=== PATIENT | female | born 1950 | race Caucasian/White ===

== ENCOUNTER → 2021-03-29 14:50 | Outpatient (CLI) | payer MEDICARE, MEDICAID, SELFPAY | PROVIDERS: PCP Family Medicine; Visit Provider Nurse Practitioner | DX: Z20.822 Contact with and (suspected) exposure to COVID-19 (principal) | CPT/HCPCS: C9803; U0003; U0005 ==

== ENCOUNTER 2022-02-05 11:00 | Emergency (ER) | payer MEDICARE, MEDICAID, SELFPAY ==
[2022-02-05 11:07] VITALS: BP 135/74; PULSE 90; RESP 18; TEMP 37.3; O2SAT 97; BMI 28.3
[2022-02-05 11:25] VITALS: BP 135/74; PULSE 90; RESP 18; TEMP 37.3; O2SAT 97
--- NOTE | 2022-02-05 11:47 | HMH.EDUTC ---
[facility] [place] Disposition Clinical Impression: Cellulitis Qualifiers: Site of cellulitis: extremity Site of cellulitis of extremity: upper extremity Laterality: right Qualified Code(s): L03.113 - Cellulitis of right upper limb Disposition: Home, Self-Care Condition on Discharge: Good Instructions: Cellulitis, Clindamycin, Mupirocin Additional Instructions: *Start antibiotic(s) immediately and be sure to take as ordered for the FULL length of time although you may be feeling better or start to see improvement in the next 24-48 hours *Monitor closely. Outlined redness so that you can monitor easier. Follow up immediately for new or worsening symptoms including but not limited to redness, swelling, streaking from site fever or chills. *Warm compress with warm water and epson salt 15 minutes 3-4 times day *Never squeeze or pop these on your own. Seek immediate medical attention next time this occurs *Monitor Temp. Tylenol every 4 hours as needed and ibuprofen every 6 hours as needed (as long as your primary care doctor has told you that it is ok to take both. For fever, aches, pain. ER if no less that 101 despite Tylenol and ibuprofen Follow up with your family doctor/primary care physician in the next 48-72 hours if no improvement Straight to ER if any life threatening symptoms Prescriptions: clindamycin HCL [Clindamycin HCl] 300 mg PO Q6H 10 Days #40 cap Transmission Status: Pending to [facility] Mupirocin Calcium [Mupirocin 2% Cream 15gm] 1 applicatio TP TID 10 Days #15 gm Transmission Status: Pending to [facility] Referrals: Isabela Dixon [Primary Care Provider] - As needed Time of Disposition: 11:56 Medical Decision Making - Pedro Inquiry Pt receiving controlled substance: No Pedro was queried for this patient: No Vital Signs: 02/05/22 11:07 02/05/22 11:25 02/05/22 11:57 Temperature 99.2 F 99.2 F 99.2 F Temperature Source Oral Oral Pulse Rate 90 Pulse Rate [Radial] 90 90 Respiratory Rate 18 18 18 Blood Pressure 135/74 Blood Pressure [Left Arm] 135/74 135/74 Blood Pressure Mean [Left Arm] 94 94 Blood Pressure Source [Left Arm] Automatic Cuff Automatic Cuff Blood Pressure Position [Left Arm] Sitting Sitting 02 Sat by Pulse Oximetry 97 97 Oxygen Delivery Method Room Air Room Air Medical Decision Narrative: Discussed transfer back to the ED for further work up and evaluation and patient declined [facility] [place] HPI - General Stated complaint: swelling spot on right arm Time Seen by Provider: 02/05/22 11:48 Mode of Arrival: Ambulatory Source of Information: Patient Limitations: No Limitations Description of Symptoms (Recalled from Triage Doc. by RN): PATIENT C/O SORE TO RIGHT FOREARM, REDNESS AND SWELLING TO AREA HEENT Symptoms (Recalled from RN notes): No Resp Symptoms (Recalled from RN notes): No Skin Symptoms (Recalled from RN notes): Yes MS Symptoms (Recalled from RN notes): No Functional Status (Recalled from RN notes): WNL - History of Present Illness Provider Complaint: Patient states that she has a small pimple like sore on her right forearm States that she has been mashing it and getting stuff out but then it stopped States that she has been putting honey and stuff on it but the redness around it is starting to spread States that she was worried it was getting infected so she came in - Related Data Previous Rx's Medication Instructions Recorded Mupirocin Calcium [Mupirocin 2% 1 applicatio TP TID 10 Days #15 gm 02/05/22 Cream 15gm] clindamycin HCL [Clindamycin HCl] 300 mg PO Q6H 10 Days #40 cap 02/05/22 Allergies Allergy/AdvReac Type Severity Reaction Status Date / Time codeine [CODEINE] Allergy Mild Unverified 06/19/17 14:59 penicillin G [PENICILLIN G] Allergy Mild Unverified 06/19/17 14:59 - Worker's Comp Is this a Worker's Comp case?: No [facility] History - Hepatitis A Screen Attestation statement:: This patient has been screened for Hepatitis A risk factors. I
[2022-02-05 11:57] VITALS: BP 135/74; PULSE 90; RESP 18; TEMP 37.3; O2SAT 97
== END 2022-02-05 12:05 | disposition home or self-care (01) ==
PROVIDERS: Emergency Provider Nurse Practitioner; PCP Family Medicine
DX: L03.113 Cellulitis of right upper limb (principal)
CPT/HCPCS: 99212; G0463

== ENCOUNTER 2023-07-10 08:34 | Day surgery (SDC) | payer MEDICARE, MEDICAID, SELFPAY ==
[2023-07-10] MEDS: CYCLOPENTOLATE 2% OPHTH SOLN 2ML BOTTLE OP ×3 (09:10→09:20)
[2023-07-10] MEDS: PHENYLEPHRINE 2.5% OPHTH SOLN 2ML 0.0500000000000000028 ML OP ×3 (09:10→09:20)
[2023-07-10] MEDS: TETRACAINE 0.5% OPTH SOL 15ML OP ×3 (09:10→09:20)
[2023-07-10 09:13] VITALS: BP 127/74; PULSE 60; RESP 18; TEMP 36.7; O2SAT 96; BMI 30.7
[2023-07-10] MEDS: SODIUM CHLORIDE 0.9% 10ML FLUSH SYRINGE 10 ML IV ×2 (09:25→11:30)
[2023-07-10 11:25] VITALS: BP 130/65; PULSE 60; RESP 16; O2SAT 98
[2023-07-10] MEDS: MIDAZOLAM 2MG/2ML VIAL 1 MG IV (11:25)
[2023-07-10] MEDS: LIDOCAINE 1% PF 2ML AMPULE 2 ML IJ (11:28)
[2023-07-10] MEDS: TOBRAMYCIN/DEX OPTH SUSP 2.5ML OP (11:29)
[2023-07-10] MEDS: TIMOLOL 0.5% OPTH SOLN 5ML OP (11:29)
[2023-07-10 11:30] VITALS: BP 135/65; PULSE 59; RESP 16; O2SAT 100
[2023-07-10 11:35] VITALS: BP 128/67; PULSE 58; RESP 16; O2SAT 100
[2023-07-10 11:38] VITALS: BP 133/61; PULSE 57; RESP 16; O2SAT 100
[2023-07-10 12:13] VITALS: BP 155/81; PULSE 64; RESP 17; TEMP 36.4; O2SAT 96
== END 2023-07-10 11:55 | disposition home or self-care (01) ==
PROVIDERS: PCP Family Medicine; Visit Provider Ophthalmology
PROC: (CPT 66984; principal; 2023-07-10 11:30)
DX: H25.812 Combined forms of age-related cataract, left eye (principal)
CPT/HCPCS: 66984; V2632

== ENCOUNTER 2023-08-14 09:59 | Day surgery (SDC) | payer MEDICARE, MEDICAID, SELFPAY ==
[2023-08-14] MEDS: PHENYLEPHRINE 2.5% OPHTH SOLN 2ML 0.0500000000000000028 ML OP ×3 (10:15→10:25)
[2023-08-14] MEDS: TETRACAINE 0.5% OPTH SOL 15ML OP ×3 (10:15→10:25)
[2023-08-14] MEDS: CYCLOPENTOLATE 2% OPHTH SOLN 2ML BOTTLE OP ×3 (10:15→10:25)
[2023-08-14 10:25] VITALS: BMI 27.4
[2023-08-14 10:27] VITALS: BP 154/87; PULSE 77; RESP 18; TEMP 36.8; O2SAT 97
[2023-08-14 11:18] VITALS: BP 133/66; PULSE 67; RESP 17; O2SAT 100
[2023-08-14] MEDS: SODIUM CHLORIDE 0.9% 10ML FLUSH SYRINGE 10 ML IV (11:21)
[2023-08-14] MEDS: MIDAZOLAM 2MG/2ML VIAL 1 MG IV (11:21)
[2023-08-14] MEDS: LIDOCAINE 1% PF 2ML AMPULE 2 ML IJ (11:22)
[2023-08-14] MEDS: TIMOLOL 0.5% OPTH SOLN 5ML OP (11:22)
[2023-08-14] MEDS: TOBRAMYCIN/DEX OPTH SUSP 2.5ML OP (11:22)
[2023-08-14 11:23] VITALS: BP 136/71; PULSE 65; RESP 16; O2SAT 100
[2023-08-14 11:28] VITALS: BP 135/67; PULSE 64; RESP 17; O2SAT 100
[2023-08-14 11:35] VITALS: BP 134/97; PULSE 68; RESP 16; TEMP 36.6; O2SAT 98
== END 2023-08-14 11:46 | disposition home or self-care (01) ==
PROVIDERS: PCP Family Medicine; Visit Provider Ophthalmology
PROC: (CPT 66984; principal; 2023-08-14 12:30)
DX: H25.811 Combined forms of age-related cataract, right eye (principal)
CPT/HCPCS: 66984; V2632